=== PATIENT | female | born 1960 | race Caucasian/White ===

== ENCOUNTER 2016-10-18 08:21 | Day surgery (SDC) | payer OTHER ==
[2016-10-17 16:58] VITALS: BMI 21.9
[2016-10-18 08:42] LABS: BASOPHIL 0.5 % (0-2.0); EOSINOPHIL 2.9 % (0-4.5); MCH 33.8 pg (25.7-33.7); MCHC 33.4 g/dl (32.0-36.0); MEAN CELL VOLUME 101.1 fl (80-96); MEAN PLT VOLUME 6.9 fl (7.5-11.1); NEUTROPHILS 43.4 % (42.8-82.8); PLATELET COUNT 238 K/MM3 (134-434); RDW 13.7 % (11.6-15.6); WHITE BLOOD COUNT 3.8 K/mm3 (4.0-10.0)
[2016-10-18 09:11] LABS: INR 0.95 (0.82-1.09); PROTHROMBIN TIME (PATIENT) 10.4 SEC (9.98-11.88)
== END 2016-10-18 09:08 | disposition home or self-care (01) ==
LOC: JRADIR 08:21
PROVIDERS: ATTEND Surgery
PROC: 0WBH3ZX Excision of Retroperitoneum, Percutaneous Approach, Diagnostic (ICD-10-PCS; principal; 2016-10-18)
DX: Z53.8 Procedure and treatment not carried out for other reasons (principal)
CPT/HCPCS: 36415; 85025; 85610

== ENCOUNTER 2016-10-22 11:27 | Day surgery (SDC) | payer OTHER ==
[2016-10-19 07:21] VITALS: BMI 21.9
[2016-10-22 12:10] VITALS: TEMP 97.7
[2016-10-22 19:01] VITALS: BP 120/64; PULSE 70
--- NOTE | 2016-10-25 09:05 | PATH ---
Cytology Non-Gynecological Report Patient Name: TERESA PATEL [facility]. Rec. #: [id number] /Age/Gender: 1960 (Age: 56) / F Account: [id number] Location: RADIOLOGY Taken: 10/22/2016 Received: 10/23/2016 Reported: 10/25/2016 Physicians: Rodney Herzog Chi Specimen(s) Received RETROPERITONEAL FLUID Clinical History None given Final Diagnosis RETROPERITONEUM, ASPIRATION: SATISFACTORY FOR EVALUATION BENIGN (NO MALIGNANT CELLS IDENTIFIED) MARKEDLY HYPOCELLULAR SPECIMEN WITH SCANT LYMPHOCYTES AND RARE POSSIBLE MESOTHELIAL CELLS PRESENT. Comment: The cytologic findings are nonspecific. No distinct epithelial component is identified. The findings may represent a mesothelial inclusion cyst. However, other possibilities cannot be excluded in this limited sample. Recommend correlation with clinical findings and follow up as clinically indicated. Electronically Signed Julien Castorena M.D. Gross Description Approximately 70 cc of yellow fluid received fixed in 50% alcohol. One cytofunnel prepared.
== END 2016-10-22 18:00 | disposition home or self-care (01) ==
LOC: JRADIR 11:27
PROVIDERS: ATTEND Surgery
PROC: 0W9G30Z Drainage of Peritoneal Cavity with Drainage Device, Percutaneous Approach (ICD-10-PCS; principal; 2016-10-22)
DX: K66.8 Other specified disorders of peritoneum (principal)
CPT/HCPCS: 49406; 87070; 87075; 87205; 88108